=== PATIENT | male | born 1935 | race Caucasian/White ===

== ENCOUNTER 2017-03-16 16:01 | Emergency (ER) | payer SELFPAY, OTHER | END 2017-03-16 23:21 | disposition left against medical advice (07) | LOC: E/R 16:01 | DX: Z53.21 Procedure and treatment not carried out due to patient leaving prior to being seen by health care provider (principal) ==

== ENCOUNTER 2017-04-07 20:06 | Emergency (ER) | payer OTHER ==
[2017-04-07 23:48] LABS: ADD UMIC NO; UR ASCORBIC ACID NEGATIVE (NEGATIVE); UR BILIRUBIN (Dip) NEGATIVE (NEGATIVE); UR BLOOD (Dip) NEGATIVE (NEGATIVE); UR CLARITY CLEAR (CLEAR); UR COLOR STRAW (YELLOW); UR GLUCOSE (Dip) NEGATIVE (NEGATIVE); UR KETONES (Dip) NEGATIVE (NEGATIVE); UR LEUKOCYTE ESTERASE (Dip) NEGATIVE Leu/ul (NEGATIVE); UR NITRITE (Dip) NEGATIVE (NEGATIVE); UR SPECIFIC GRAVITY (Dip) 1.011 (1.003-1.030); UR TOTAL PROTEIN (Dip) NEGATIVE (NEGATIVE); UR UROBILINOGEN (Dip) NEGATIVE (NEGATIVE)
== END 2017-04-08 00:24 | disposition home or self-care (01) ==
LOC: FTE 04-08 00:24
DX: R33.9 Retention of urine, unspecified (principal)
CPT/HCPCS: 51702; 81003; 99283-25